=== PATIENT | male | born 1935 | race Asian ===

== ENCOUNTER 2023-04-22 17:59 | Emergency (ER) | payer OTHER ==
[~2023-04-22] VITALS: Ht 167.6 cm; Wt 81.6 kg
[~2023-04-22 17:59] MED LIST: AMLO-271 PO; APIX2.5 PO; ATOR40TA PO; BENA40TA PO; CALC667T8 PO; CARV6.25 PO; CHOL200072 PO; CLOP75TA55 PO; DEC4 PO; FERR324T11 PO; FURO-570 PO; ISOS20TA13 PO; OSEL30CA2 PO; PANT40EC PO
[2023-04-22 18:07] VITALS: BP 199/99; PULSE 71; RESP 18; TEMP 97.4; O2SAT 96
== END 2023-04-22 18:54 | disposition left against medical advice (07) ==
LOC: MED 17:59
DX: R41.82 Altered mental status, unspecified (principal); Z79.899 Other long term (current) drug therapy; Z79.01 Long term (current) use of anticoagulants; E11.22 Type 2 diabetes mellitus with diabetic chronic kidney disease; I12.0 Hypertensive chronic kidney disease with stage 5 chronic kidney disease or end stage renal disease; N18.6 End stage renal disease; F03.90 Unspecified dementia, unspecified severity, without behavioral disturbance, psychotic disturbance, mood disturbance, and anxiety; I25.10 Atherosclerotic heart disease of native coronary artery without angina pectoris; E78.5 Hyperlipidemia, unspecified; J44.9 Chronic obstructive pulmonary disease, unspecified; Z99.2 Dependence on renal dialysis; Z88.0 Allergy status to penicillin
CPT/HCPCS: 99283